=== PATIENT | female | born 1985 | race Asian ===

== ENCOUNTER → 2016-10-19 | Outpatient (CLI) | payer OTHER ==
[~2016-10-19] MED LIST: ACET-749 PO; CLC100 PO; MTR600X PO; PRENTAB26 PO; PYRI1TAB30 PO; SENN8.6T7 PO
[2016-10-19 16:59] LABS: URINE APPEARANCE CLEAR (CLEAR); URINE BILIRUBIN NEG (NEG); URINE COLOR YELLOW; URINE EPITHELIAL CELL AUTO >30 /lpf (0-5); URINE NITRITE NEG (NEG); URINE PH 6.5 (4.5-7.5); URINE SPECIFIC GRAVITY 1.011 (1.000-1.030); UROBILINOGEN NEG (NEG)
[2016-10-19 17:07] LABS: MANUAL MICROSCOPIC REQUIRED? NO; REVIEW REQ? NO
[2016-10-19 19:06] LABS: GTGD 50 Grams
== END | disposition home or self-care (01) ==
LOC: C.LAB1850 14:22
PROVIDERS: ATTEND Obstetrics & Gynecology
DX: Z34.03 Encounter for supervision of normal first pregnancy, third trimester (principal)

== ENCOUNTER → 2016-12-15 | Outpatient (CLI) | payer OTHER | END | disposition home or self-care (01) | LOC: C.LABSPEC 16:25 | PROVIDERS: ATTEND Obstetrics & Gynecology | DX: Z34.03 Encounter for supervision of normal first pregnancy, third trimester (principal) ==

== ENCOUNTER 2017-01-12 15:27 | Inpatient (IN) | payer OTHER ==
[~2017-01-12] VITALS: Ht 165.1 cm; Wt 66.0 kg
[~2017-01-12 15:27] MED LIST changes: -ACET-749 PO; -CLC100 PO; -MTR600X PO; -SENN8.6T7 PO
[2017-01-12] MEDS ORDERED: LACTATED RINGER'S 1000ML 1,000 ML IV PRN (21:24)
[2017-01-12 21:49] LABS: MEAN CELL VOLUME 86.9 fL (80-100); MEAN CORPUSCULAR HEMOGLOBIN 29.3 pg (25-34); MEAN CORPUSCULAR HGB CONC 33.7 g/dl (32-36); MEAN PLATELET VOLUME 12.2 fL (7.4-10.4); PLATELET COUNT 213 K/uL (130-400); RED BLOOD COUNT 4.95 M/uL (4.2-5.4); WHITE BLOOD COUNT 15.03 K/uL (4.8-10.8)
[2017-01-12] MEDS ORDERED: BUPIVACAINE 0.25% 30 ML VIAL ONE (21:54)
[2017-01-12] MEDS ORDERED: FENTANYL CITRATE INJ 50 MCG/1 ML 2 ML VIAL ONE (21:54)
[2017-01-12] MEDS ORDERED: EpHEDrine SULFATE INJ 50 MG/ML AMP ONE (21:54)
[2017-01-12] MEDS ORDERED: FENTANYL 2MCG/ML ROPIV 1.25MG/ML 100ML BAG EPI ONE (21:55)
[2017-01-12] MEDS ORDERED: BUTORPHANOL TARTRATE 1 MG/ML VIAL ONE (22:47)
[2017-01-12] MEDS ORDERED: BUTORPHANOL TARTRATE 1 MG/ML VIAL IV ONE (23:00)
[2017-01-13] MEDS: LACTATED RINGER'S 1000ML 1,000 ML IV SCH ×2 (00:12→08:58)
[2017-01-13 00:32] VITALS: Ht 165.1 cm; Wt 66.0 kg
[2017-01-13] MEDS ORDERED: NALOXONE HCL INJ 1 MG in SODIUM CHLORIDE 0.9% 1000ML 1,000 ML IV PRN (02:07)
[2017-01-13] MEDS ORDERED: LACTATED RINGER'S 1000ML 500 ML IV PRN ×2 (02:07→09:56)
[2017-01-13] MEDS ORDERED: NALBUPHINE HCL INJ 10 MG/ML AMP IV PRN (02:15)
[2017-01-13] MEDS ORDERED: FENTANYL 2MCG/ML ROPIV 1.25MG/ML 100ML BAG EPI PRN (02:15)
[2017-01-13] MEDS ORDERED: NALOXONE HCL INJ 0.4 MG/1 ML VIAL/CARP IV PRN (02:15)
[2017-01-13] MEDS ORDERED: EpHEDrine SULFATE INJ 50 MG/ML AMP IV PRN (02:15)
[2017-01-13] MEDS ORDERED: ONDANSETRON INJ 2 MG/ML 2 ML VIAL IV PRN (02:15)
[2017-01-13] MEDS ORDERED: DiphenhydrAMINE HCL 50 MG/ML VIAL IV PRN (02:15)
[2017-01-13] MEDS ORDERED: OXYTOCIN 30 UNITS/500ML NSS IV ONE (08:12)
[2017-01-13] MEDS ORDERED: OXYTOCIN 30 UNITS/500ML NSS IV PRN ×2 (10:00→11:30)
[2017-01-13] MEDS ORDERED: LANOLIN OINT EXT PRN ×2 (11:30)
[2017-01-13] MEDS ORDERED: SUPERCREAM 0.870 % 15GM JAR EXT PRN (11:30)
[2017-01-13] MEDS ORDERED: DIPHTHERIA/TETANUS/PERTUSSIS 0.5 ML SYR/VIAL IM. ONE (11:30)
[2017-01-13] MEDS ORDERED: ACETAMINOPHEN/CODEINE 300/30MG TAB PO PRN ×2 (11:30)
[2017-01-13] MEDS ORDERED: ACETAMINOPHEN 325 MG TAB PO PRN (11:30)
[2017-01-13] MEDS ORDERED: BENZOCAINE 20% AER SPR 82.5 GM CAN EXT PRN (11:30)
[2017-01-13] MEDS ORDERED: HYDROCORTISONE ACETATE 25 MG SUPP PR PRN (11:30)
--- NOTE | 2017-01-13 12:13 | DELIVERY SUMMARY ---
DATE OF OPERATION: 01/13/2017 DELIVERY NOTE DATE OF DELIVERY: 01/13/2017. FINDINGS: Viable female with Apgars of 8 and 9. Baby delivered by low forceps after failed vacuum for maternal exhaustion. Pediatrics present for the delivery. Baby delivered over a midline episiotomy with 4th degree extension. Cord gasses, cord blood samples obtained. Placenta delivered spontaneously. Lacerations and episiotomy repaired in routine fashion. Estimated blood loss 300 mL. LABOR NOTE: The patient is a 31-year-old 1, para 0 with an EDC of 11 January who is admitted on 12 January at 40+ weeks gestational age in active labor. The patient had started earlier in the day of admission and increased in intensity. The patient's course was remarkable for an incidental short cervix noted on anatomy ultrasound at 20 weeks. The patient was followed conservatively with no problems during the period. Upon admission the patient was 4-5 cm dilated, 80% efface. Tracing was category 1. Anesthesia was consulted and an epidural was placed. Following placement of the epidural the patient had artificial rupture of membranes with clear fluid. Over the next 8 hours the patient progressed to full dilatation and began her second stage. At this point the delivering physician assumed care for the patient. The heart rate tracing was category 2. The vertex was felt to be in an OA presentation. The patient pushed for 2 hours with the epidural rate being decreased to increase sensitivity and also starting some Pitocin augmentation to increase the quality of the contracts. After pushing for 3 hours the patient had brought the caput down to the perineum but was exhausted. At this point verbal consent was obtained for an attempted vacuum extraction. However, because of the marked caput the vacuum did not have a good purchase on the vertex and kept leaking air. Two attempted pulls were performed without success. Again position was checked and was felt to be OA with the caput on the perineum. Sánchez forceps were then placed atraumatically and with the next contraction the baby was delivered over a midline episiotomy with 4th degree extension. The vertex was in an OP presentation. The baby was delivered, the cord was clamped and cut and the baby was passed off to pediatrics who was in attendance for the delivery. Cord gases, cord blood samples obtained and the placenta was delivered spontaneously. Inspection of the perineum noted a 4th degree laceration. The cervix was intact and there were no vaginal lacerations appreciated. The rectal mucosa was then reapproximated in 2 layers of 4-0 Vicryl, the first a running locking stitch, the second an imbricating stitch. The third degree was corrected by identifying the ends of the sphincter muscles and the sphincter was then reapproximated with 3 figure-of-8 2-0 Vicryl sutures. The episiotomy was then repaired with 4-0 and 2-0 Vicryl in a routine fashion. Sponge and needle count was correct. Estimated blood loss was 300 mL. I attest to the content of the Intraoperative Record and any orders documented therein. Any exceptions are noted below. MTDD
[2017-01-13] MEDS: IBUPROFEN 600 MG TAB PO PRN ×2 (13:47→19:32)
--- NOTE | 2017-01-13 14:53 | Anesthesia Procedure Note ---
Anesthesia Epidural Removal Nt Date & Time Jan 13, 2017 at 14:53 Vital Signs Pain Intensity: 2.0 Notes Mental Status: alert / awake / arousable, participated in evaluation Nausea / Vomiting: adequately controlled Pain: adequately controlled Airway Patency, RR, SpO2: stable & adequate BP & HR: stable & adequate Hydration State: stable & adequate Neuraxial Anesthesia: was administered Anesthetic Complications: no major complications apparent, pt satisfied with anesthetic care Epidural: removed without complications, with tip intact
[2017-01-13 15:40] VITALS: BP 103/64; PULSE 100; TEMP 36.7
[2017-01-13 19:35] VITALS: BP 110/73; PULSE 69; TEMP 36.6; O2SAT 97
[2017-01-13 22:45] VITALS: BP 107/67; PULSE 77; TEMP 36.6; O2SAT 98
[2017-01-14] MEDS: IBUPROFEN 600 MG TAB PO PRN ×4 (02:26→20:13)
[2017-01-14 04:35] VITALS: BP 105/70; PULSE 60; TEMP 36.6; O2SAT 98
[2017-01-14 07:15] VITALS: BP 105/67; PULSE 60; TEMP 36.8
--- NOTE | 2017-01-14 07:27 | Progress Note ---
Subjective Jan 14, 2017. Subjective conversation w/ patient, physical exam, lab review Ambulation: ambulating normally Voiding: no voiding problems Passing Gas: Yes Diet Tolerance: Regular Diet Lochia: Moderate Feeding Type: Breast Feeding Pain: improving with meds Comment: Patient was seen at the bedside. No acute event overnight. Review of Systems Constitutional: No fever Respiratory: No shortness of breath Cardiac: No chest pain Breast: No breast lump Abdomen: No nausea, No pain, No vomiting Female : No dysuria, No urinary frequency Denies headache Objective Vital Signs Date Time Temp Pulse Resp B/P Pulse Ox O2 Delivery O2 Flow Rate FiO2 01/14/17 04:35 36.6 60 16 105/70 98 Room Air 01/13/17 22:45 36.6 77 18 107/67 98 Room Air 01/13/17 22:45 Room Air 01/13/17 19:35 36.6 69 16 110/73 97 Room Air 01/13/17 15:40 36.7 100 20 103/64 Physical Exam General Appearance: WELL-APPEARING, WD/WN, NO APPARENT DISTRESS Respiratory/Chest: chest non-tender, lungs clear, normal breath sounds, no respiratory distress Cardiovascular: regular rate, rhythm Abdomen: normal bowel sounds, non tender, soft Fundus: Firm, Relation to Umbilicus (1cm below) Extremities: non-tender, no pedal edema, no calf tenderness Laboratory Results Last 24 Hours Test 01/14/17 06:43 Medications Current Inpatient Medications Medications (Trade) Dose Ordered Sig/Fermin Route Start Time Stop Time Status Last Admin Dose Admin Oxytocin (Pitocin IV) 30 units UD PRN IV 01/13/17 11:30 02/12/17 11:29 Benzocaine (Dermoplast Aero Spr) 1 appln PRN PRN EXT 01/13/17 11:30 02/12/17 11:29 Cocaine HCl (Supercream 0.870% Cr) BID PRN EXT 01/13/17 11:30 01/27/17 11:29 Hydrocortisone Acetate (Anusol Hc Supp) 25 mg BID PRN MS 01/13/17 11:30 02/12/17 11:29 Lanolin (Lanolin Oint) PRN PRN EXT 01/13/17 11:30 02/12/17 11:29 Prenat Multivit/ [place]/Iron/Folic Ac ( Vitamin Tab) 1 tab DAILY PO 01/14/17 08:00 02/13/17 07:59 Ibuprofen (Motrin Tab) 600 mg Q4H PRN PO 01/13/17 11:30 02/12/17 11:29 01/14/17 02:26 600 MG Acetaminophen (Tylenol Tab) 650 mg Q6H PRN PO 01/13/17 11:30 02/12/17 11:29 Acetaminophen/ Codeine Phosphate (Tylenol w/ Codeine #3 Tab) 1 tab Q4H PRN PO 01/13/17 11:30 02/12/17 11:29 Acetaminophen/ Codeine Phosphate (Tylenol w/ Codeine #3 Tab) 2 tab Q4H PRN PO 01/13/17 11:30 02/12/17 11:29 Ferrous Sulfate (Feosol Tab) 325 mg DAILY PO 01/14/17 08:00 02/13/17 07:59 Senna/Docusate Sodium (Senokot S Tab) 1 tab QAM PO 01/14/17 08:00 02/13/17 07:59 Assessment and Plan Problem List Medical Problems: (1) Nausea & vomiting Status: Acute Post- Day#: 1 Continue Routine Care: A/P: This is a 31 y/o female, , s/p normal vaginal delivery. She is ambulating and clinically stable. Plan: - Vitals signs are reviewed and WNL (Tmax 36.7 ) - Last Hgb is 14.5 - Blood type A+, GBS neg, Rubella Immune - Routine care - Encourage ambulation, monitor and control pain with medication as needed , continue with regular diet as tolerated and monitor lochia - Stool softeners and sitz bath recommended - Encourage breast feeding and educate about breast feeding Resident Physician Supervision Note: I interviewed and examined the patient. Discussed with Dr. Sung and agree with findings and plan as documented in the note. Any exceptions or clarifications are listed here: [None] Documented By: Delbert Gutiérrez
[2017-01-14 07:30] LABS: HEMATOCRIT 34.9 % (37-47)
[2017-01-14] MEDS: PRENATAL VITAMIN TAB PO SCH (08:17)
[2017-01-14] MEDS: FERROUS SULFATE 325 MG TAB PO SCH (08:17)
[2017-01-14] MEDS: DOCUSATE SODIUM/SENNA 50/8.6MG TAB PO SCH (08:17)
[2017-01-14 16:00] VITALS: BP 116/74; PULSE 75; TEMP 36.6
[2017-01-15 00:05] VITALS: BP 112/69; PULSE 73; TEMP 36.2; O2SAT 97
[2017-01-15] MEDS: IBUPROFEN 600 MG TAB PO PRN ×2 (00:36→06:36)
[2017-01-15 07:20] VITALS: BP 107/70; PULSE 62; TEMP 36.6
[2017-01-15] MEDS: DOCUSATE SODIUM/SENNA 50/8.6MG TAB PO SCH (07:36)
[2017-01-15] MEDS: FERROUS SULFATE 325 MG TAB PO SCH (07:36)
[2017-01-15] MEDS: PRENATAL VITAMIN TAB PO SCH (07:36)
--- NOTE | 2017-01-15 09:08 | Progress Note ---
Subjective Jan 15, 2017. Subjective conversation w/ patient, physical exam Ambulation: ambulating normally Voiding: no voiding problems Passing Gas: Yes Diet Tolerance: Regular Diet Lochia: Moderate Feeding Type: Breast Feeding Pain: well controlled Review of Systems Constitutional: No chills, No fatigue, No fever, No problem reported, No sweats , No weakness, No weight loss Breast: No breast lump, No breast pain, No change in shape, No nipple discharge , No problem reported, No see HPI Abdomen: No GI bleeding, No constipation, No diarrhea, No nausea, No pain, No problem reported, No vomiting Female : No abnormal vaginal bleeding, No dysuria, No hematuria, No incontinence, No problem reported, No see HPI, No urinary frequency, No vaginal discharge Objective Vital Signs Date Time Temp Pulse Resp B/P Pulse Ox O2 Delivery O2 Flow Rate FiO2 01/15/17 07:40 Room Air 01/15/17 07:20 36.6 62 20 107/70 Room Air 01/15/17 00:05 97 Room Air 01/15/17 00:05 36.2 73 20 112/69 97 Room Air 01/14/17 16:00 Room Air 01/14/17 16:00 36.6 75 16 116/74 Room Air Physical Exam General Appearance: WELL-APPEARING, NO APPARENT DISTRESS Abdomen: non tender, soft Fundus: Firm, Non-Tender, Relation to Umbilicus (1 below U) Extremities: no calf tenderness Assessment and Plan Problem List Medical Problems: (1) Nausea & vomiting Status: Acute Post- Day#: 2 Continue Routine Care: stable course discharge to home follow up in 6 weeks.
[2017-01-15] MEDS ORDERED: MTR600X PO (09:11)
[2017-01-15] MEDS ORDERED: SENN8.6T7 PO (09:11)
[2017-01-15] MEDS ORDERED: ACET-749 PO (09:11)
--- NOTE | 2017-01-15 09:13 | Discharge Instructions ---
Discharge Instructions Date of Service Jan 15, 2017. Admission Reason for Admission: Check Labor Discharge Discharge Diagnosis / Problem: recovery from normal delivery Discharge Goals Goal(s): Routine recovery after delivery Activity Recommendations Activity Limitations: per Instructions/Follow-up section . Instructions / Follow-Up Instructions / Follow-Up ACTIVITY RECOMMENDATIONS: * Gradual return to full activity over the next 2-3 weeks. * No lifting - nothing heavier than baby over the next 2-3 weeks. * Do not engage in vigorous exercise, sexual activity or sports until cleared by your physician. * Do not drive or operate any motorized equipment until cleared by your physician. * You may shower/bathe daily. MEDICATIONS: For discomfort or pain, you may use Acetaminophen (Tylenol), Ibuprofen (Advil), or Naproxen (Aleve) following the package directions. For constipation you may use Colace following the package directions. BREAST CARE: If you are not breast feeding: * Wear a supportive bra 24 hours a day for one to two weeks. * Avoid stimulating your breasts and nipples as much as possible during the first few weeks after delivery. * When taking a shower, have the warm water hit your back, not breasts. * When your breasts feel full, apply ice packs. Usually three to four times a day helps ease the discomfort. * Take a mild pain medication (Tylenol / Motrin) when you are uncomfortable. If breast feeding: * Use breast milk to lubricate nipples. Lansinoh cream may be used for sore nipples. You do not need to remove cream prior to breast feeding. If using a different brand of cream, check the label for directions regarding removal of cream prior to nursing. * Wear a supportive bra. * If having problems with breasts or breast feeding, call a communication consultant or your health care provider. EPISIOTOMY CARE: After delivery, if you have an episiotomy (stitches), the following steps will ease discomfort and aid healing. * For the first 24 hours after delivery, place ice packs next to your episiotomy to help reduce swelling. * After the first 24 hour-period, sitz baths, either portable or in the tub, are suggested. A shower with a shower arm sprayed over the episiotomy may be comforting. * Karen care should be done after each voiding and bowel movement. Squirt warm water from a plastic bottle over the perineum (region of the body between the anus and urinary opening) and pat dry. * Use Dermoplast to ease discomfort. Shake container. [place] directly over the episiotomy. Place a Tucks on a clean sanitary pad next to your episiotomy. SPECIAL CARE INSTRUCTIONS: When you are discharged from the hospital, it is important for you to follow the instructions listed below: * During the first week at home, you should be able to care for yourself and your baby. In addition, the usual light household activities are encouraged. * Limit your activities to the way you feel. Do not try to clean the house or move furniture. Be sensible. * If you actively engage in sports and have done so up until the time of your delivery, you may resume these activities as soon as you feel able. This may take up to one month or even longer. Use good judgment. * Continue to take your vitamins for at least six weeks after the of your baby. * Your diet need not be limited unless you were on a special diet before your delivery. Breast-feeding mothers need around 2500 calories per day and at least 64-80 ounces of fluid per day (8 to 10 glasses). * You should eat foods from the four major food groups. Crash diets or fad diets are to be avoided. Eating lean meats, fresh fruits and vegetables, low-fat dairy products, high fiber foods and a regular exercise program, will help you get back to your pre- weight without putting your health at risk. * Constipation is sometimes a problem after delivery. Take a mild laxative as needed. If breast feeding, Milk of Magnesia is acceptable to use. You may use a suppository or Fleets enema if no episiotomy. * A daily shower or tub bath is suggested. Be sure to thoroughly and gently dry the perineum. * A bloody vaginal discharge will usually continue until around four weeks post . A small amount of bleeding may continue for as long as six weeks. Vaginal discharge changes from the bright red bleeding after delivery to pink then brownish and finally yellowish-pink before becoming white and disappearing. * Bleeding may increase with activity. Your first period may come in 4-8 weeks. If you are breast feeding, your period may be delayed even longer. * [place] (sex) can begin whenever both you and your partner feel comfortable and do not have any form of genital infection. It is recommended that you wait at least six weeks for internal and external healing to occur. If you have questions, please talk to your health care practitioner. A condom should be used to prevent infection and . * Foreplay, gentle intercourse and lubrication is very important the first several times to prevent pain. A water-based lubricant such as K-Y jelly or Astroglide may be used. * If you have RH negative blood and your baby is RH positive, you will receive RHOGAM by injection prior to discharge. The nurse will give you a card to keep with you that has the date and place that you received RHOGAM after delivery. * During your care, you had a Rubella screen done to check for the presence of rubella antibodies in your blood. If your test was negative, you will receive a Rubella vaccine prior to discharge. This vaccine may cause a fever, soreness at the injection site and flu-like symptoms. If these symptoms persist, notify your health care practitioner. is not advised for one month after a Rubella vaccine. * Verbalizes understanding of car seat law as reviewed with patient nursing. * Car Seat hand-out given and reviewed with patient by nursing. * Shaken baby information reviewed with patient by nursing. Call you doctor if: * Heavy bleeding (saturating several pads an hour) or passing clots the size of your fist. * A fever >101 degrees F (38.3 degrees C) on two occasions four hours apart and /or chills. * Unusual pain in the pelvic or vaginal areas. * "Baby Blues" lasting longer than two weeks. If you have any questions or concerns, call your health care practitioner at . FOLLOW UP VISIT: * Please call the office at to schedule a 6 week examination. It is important you keep this appointment. It is important for you to make arrangements for either yearly or twice yearly check-ups thereafter. Current Hospital Diet Patient's current hospital diet: Regular OB Diet Discharge Diet Recommended Diet: Regular OB Diet Pending Studies Studies pending at discharge: no Medical Emergencies . Who to Call and When: Medical Emergencies: If at any time you feel your situation is an emergency, please call 911 immediately. . Non-Emergent Contact Non-Emergency issues call your: [employer] . . "Provider Documentation" section prepared by Cristina Serna. . VTE Core Measure Inpt VTE Proph given/why not?: Treatment not indicated
[2017-01-15] MEDS ORDERED: CLC100 PO (09:28)
[2017-01-15 09:54] VITALS: BP 107/70; PULSE 62; TEMP 36.6; O2SAT 97
[2017-01-15 13:00] VITALS: BP_DIAS 70; PULSE 62; TEMP 36.6
[2017-01-16] MEDS ORDERED: DOCUSATE SODIUM 100 MG CAP PO SCH (08:00)
--- NOTE | 2017-01-16 15:53 | DISCHARGE SUMMARY ---
ADMITTING DIAGNOSES: 1. Term . 2. Active labor. DISCHARGE DIAGNOSES: 1. Same. 2. Prolonged second stage. 3. Maternal exhaustion. PROCEDURES PERFORMED: 1. Low outlet forceps delivery after failed vacuum extraction. 2. Repair of fourth degree laceration and episiotomy. DISCHARGE MEDICATIONS: 1. Motrin 600 mg p.o. q. 6 hours p.r.n. pain. 2. Karen-Colace 1 p.o. q. daily. ADMISSION HISTORY: The patient is a 31-year-old 1, para 0 at 40+ weeks gestational age who was admitted in active labor. The patient was observed on labor and delivery and had cervical change and was admitted. The patient's course was remarkable for a short cervix noted on a 20-week anatomy ultrasound. Cervix did not change and no followup was needed during the . Upon admission the patient was noted to be 4-5 cm dilated, 100% effaced, -2 station with bulging membranes. The patient's tracing was category 1-2. Anesthesia was consulted and an epidural was placed. On the morning of delivery, delivering physician assumed care for the patient. The patient was fully dilated at a +1 presentation, tracing category 2 and she was felt to be in direct OA presentation. The patient pushed for 3 hours bringing the caput down to the perineum. At this point, the patient was unable to push any longer after 3 hour second stage. Significant caput was noted but an attempted vacuum extraction after verbal consent was tried. However, the vacuum could not be applied secondary to the caput and not getting a seal. Again, presentation was felt to be OA. As such Sánchez forceps were placed atraumatically and over the next contraction the baby was delivered over midline episiotomy with fourth degree extension. Baby delivered from a direct OP presentation. Cord was clamped and cut and the baby had good vigorous cry but was passed off to pediatrics who was in attendance for the delivery. Inspection of the perineum showed a 4th degree laceration which was repaired in routine fashion. Postoperatively, the patient did well. H\T\H on the first postoperative day came back at 11.4 and 34.9. The patient was discharged home on the second day with the routine discharge instructions and the medications were listed as above. She will follow up in the office in 6 weeks' time for a check but as always she has been instructed to call with any questions, problems or difficulties.
== END 2017-01-15 13:00 | disposition home or self-care (01) | DRG 775 ==
LOC: C.OPB 15:27 → C.LD 15:27 → C.OPB 21:26 → C.LD 21:26 → C.OBG 01-13 16:20
PROVIDERS: ADMIT Obstetrics & Gynecology; ATTEND Obstetrics & Gynecology
PROC: 0DQP0ZZ Repair Rectum, Open Approach (ICD-10-PCS; principal; 2017-01-13)
PROC: 0W8NXZZ Division of Female Perineum, External Approach (ICD-10-PCS; principal; 2017-01-13)
PROC: 10D07Z3 Extraction of Products of Conception, Low Forceps, Via Natural or Artificial Opening (ICD-10-PCS; principal; 2017-01-13)
DX: O48.0 Post-term pregnancy (principal); O70.3 Fourth degree perineal laceration during delivery; O26.873 Cervical shortening, third trimester; O75.81 Maternal exhaustion complicating labor and delivery; O66.5 Attempted application of vacuum extractor and forceps; Z37.0 Single live birth; Z3A.40 40 weeks gestation of pregnancy